=== PATIENT | male | born 1985 | race Caucasian/White ===

== ENCOUNTER 2017-09-22 08:34 | Emergency (ER) | payer OTHER ==
[~2017-09-22] VITALS: Ht 167.6 cm; Wt 75.0 kg
[2017-09-22] MEDS ORDERED: IBUPROFEN 600MG TABLET PO ONE (09:15)
[2017-09-22] MEDS ORDERED: HYDROCODONE/ACETAMINOPHEN 5/325MG TABLET PO ONE (09:15)
[2017-09-22] MEDS ORDERED: LIDOCAINE HCL 1% 20ML VIAL (Pyxis) INJ MC ONE (10:45)
[2017-09-22 11:55] VITALS: BP 128/74
== END 2017-09-22 12:06 | disposition home or self-care (01) ==
LOC: ER 08:43
DX: S52.501A Unspecified fracture of the lower end of right radius, initial encounter for closed fracture (principal); W22.8XXA Striking against or struck by other objects, initial encounter; Y93.89 Activity, other specified; Y92.89 Other specified places as the place of occurrence of the external cause; Y99.8 Other external cause status
CPT/HCPCS: 10160; 24650; 73100; 73110; 99284; J3490; A4565